=== PATIENT | female | born 1960 | race Caucasian/White ===

== ENCOUNTER 2017-11-27 11:27 | Emergency (ER) | payer SELFPAY ==
[2017-11-27 12:41] VITALS: BP 141/89
== END 2017-11-27 12:41 | disposition home or self-care (01) ==
LOC: ED 11:27
DX: J06.9 Acute upper respiratory infection, unspecified (principal); H10.9 Unspecified conjunctivitis

== ENCOUNTER 2018-09-19 19:58 | Inpatient (IN) | payer MEDICAID ==
[~2018-09-19] VITALS: Ht 157.5 cm; Wt 83.9 kg
[2018-09-19 20:00] VITALS: Ht 157.5 cm; Wt 83.9 kg
[2018-09-19 20:23] LABS: BASOPHIL % 0.3 % (0-2); PLATELET COUNT 261 x10^3mcL (130-400); RED CELL DISTRIBUTION WIDTH 14.1 % (11.5-14.5)
[2018-09-19 20:33] LABS: CALCIUM 8.9 mg/dL (8.5-10.1); CARBON DIOXIDE 29.4 mmol/L (21-32); CHLORIDE SERUM 105 mmol/L (98-107); CREATININE SERUM 0.8 mg/dL (0.6-1.0); GFR1 > 60 mL/min; GLUCOSE SERUM 105 mg/dL (74-106); POTASSIUM SERUM 4.2 mmol/L (3.5-5.1); SODIUM SERUM 141 mmol/L (136-145)
[2018-09-19 20:36] LABS: ALKALINE PHOSPHATASE 124 U/L (46-116); ALT/SGPT 51 U/L (14-59); AST/SGOT 32 U/L (15-37); BILIRUBIN TOTAL 0.3 mg/dL (0.20-1.00); TOTAL PROTEIN, SERUM 7.8 g/dL (6.4-8.2)
[2018-09-19] MEDS ORDERED: LISINOPRIL40 MG PO (22:17)
[2018-09-19 22:52] LABS: FREE T4 1.09 ng/dL (0.76-1.46); FREE THYROXINE INDEX 2.4 ug/dL (1.4-4.5); T4(THYROXINE) 6.5 ug/dL (4.7-13.3)
[2018-09-19 22:54] LABS: T3 TOTAL 0.87 ng/mL
[2018-09-19 23:32] LABS: MAGNESIUM 2.2 mg/dL (1.8-2.4); PHOSPHOROUS 4.3 mg/dL (2.5-4.9)
[2018-09-20 00:05] VITALS: BP 143/61
[2018-09-20 00:05] LABS: UA SPECIFIC GRAVITY 1.015 (1.005-1.035); microscopic required? YES; urine erythrocyte NEGATIVE (NEGATIVE)
[2018-09-20 00:14] LABS: AMPHETAMINE QUAL UR NONE DETECTED (See below)
[2018-09-20 05:51] VITALS: BP 147/84
[2018-09-20 06:36] LABS: BASOPHIL % 0.3 % (0-2); PLATELET COUNT 222 x10^3mcL (130-400); RED CELL DISTRIBUTION WIDTH 13.9 % (11.5-14.5)
[2018-09-20 07:25] LABS: CALCIUM 8.4 mg/dL (8.5-10.1); CARBON DIOXIDE 27.9 mmol/L (21-32); CHLORIDE SERUM 110 mmol/L (98-107); CREATININE SERUM 0.6 mg/dL (0.6-1.0); GFR1 > 60 mL/min; GLUCOSE SERUM 107 mg/dL (74-106); POTASSIUM SERUM 4.2 mmol/L (3.5-5.1); SODIUM SERUM 143 mmol/L (136-145)
[2018-09-20 08:46] VITALS: BP 139/78
[2018-09-20 12:45] VITALS: BP 143/82
[2018-09-20 16:10] VITALS: BP 125/74
[2018-09-20 19:27] VITALS: BP 138/84
[2018-09-21 04:56] VITALS: BP 138/80
[2018-09-21 06:20] LABS: BASOPHIL % 0.3 % (0-2); PLATELET COUNT 217 x10^3mcL (130-400); RED CELL DISTRIBUTION WIDTH 13.8 % (11.5-14.5)
[2018-09-21 06:53] LABS: CALCIUM 8.7 mg/dL (8.5-10.1); CARBON DIOXIDE 30.3 mmol/L (21-32); CHLORIDE SERUM 105 mmol/L (98-107); CREATININE SERUM 0.7 mg/dL (0.6-1.0); GFR1 > 60 mL/min; GLUCOSE SERUM 98 mg/dL (74-106); MAGNESIUM 2.4 mg/dL (1.8-2.4); PHOSPHOROUS 4.7 mg/dL (2.5-4.9); SODIUM SERUM 140 mmol/L (136-145)
[2018-09-21 07:52] VITALS: BP 150/76
[2018-09-21 12:03] VITALS: BP 127/77
[2018-09-21] MEDS ORDERED: ECO81 PO (14:52)
[2018-09-21] MEDS ORDERED: METOPROLOL TART25 M1 PO (14:52)
[2018-09-21] MEDS ORDERED: NIT0.4 SL (14:52)
[2018-09-21] MEDS ORDERED: LIPITOR80 MG PO (15:00)
[2018-09-21 15:25] VITALS: BP 127/77
[2018-09-21 17:59] VITALS: BP 148/91
[2018-09-21 19:34] VITALS: BP 132/86
[2018-09-22] VITALS (7 sets, daily range): BP systolic 121–147; BP diastolic 74–83
== END 2018-09-22 22:31 | disposition short-term general hospital (02) | DRG 198 ==
LOC: ED 19:58 → DU 21:59
PROVIDERS: Emergency Medicine; Family Medicine
DX: I25.89 Other forms of chronic ischemic heart disease (principal); N17.0 Acute kidney failure with tubular necrosis; R73.03 Prediabetes; I10 Essential (primary) hypertension; E78.5 Hyperlipidemia, unspecified; E66.9 Obesity, unspecified; Z68.33 Body mass index [BMI] 33.0-33.9, adult
CPT/HCPCS: 83880; 84439; 85378; A9500; J2405; J2785; J3010; J7030; Q0092; Q9967